=== PATIENT | female | born 1960 | race Caucasian/White ===

== ENCOUNTER 2016-08-10 21:25 | Emergency (ER) | payer OTHER ==
--- NOTE | 2016-08-10 23:27 | DIAGNOSTIC IMAGING REPORT ---
PROCEDURE: CT ABD/PELVIS WITH CONTRAST CLINICAL INDICATION: ABDOMINAL PAIN TECHNIQUE: 125 ml of Isovue 300 were injected intravenously and axial images were obtained of the entire abdomen and pelvis with sagittal and coronal reformations. COMPARISON: None. FINDINGS: ABDOMEN: Mild bibasilar atelectasis. Heart size is normal. Liver, gallbladder, pancreas, spleen, adrenal glands and kidneys are normal. Normal abdominal aorta. Mild hiatal hernia. Large amount of stool. PELVIS: Normal appendix. Occasional diverticula of the proximal sigmoid colon with minor adjacent inflammatory changes. 2.3 cm fibroid. Normal adnexa and bladder. No inflammatory changes or free fluid. Old left inferior pubic ramus fracture. Chronic moderate L1 compression fracture. Grade 1 L4-5 anterolisthesis. IMPRESSION: 1. Proximal sigmoid colon occasional diverticula and minor inflammatory changes consistent with partially treated diverticulitis 2. Obstipation 3. Mild hiatal hernia 4. Results discussed with Dr. Arora All CT scans at this facility use dose modulation, iterative reconstruction, and/or weight-based dosing when appropriate to reduce radiation dose to as low as reasonably achievable.
--- NOTE | 2016-08-11 00:36 | ED ORDER SUMMARY ---
..... Patient: JOSEP JAVED R OrderSheet [facility] VisitID: [id number] [place] [address] 55y, F Registration Date/Time: 08/10/2016 ORDER SHEET Weight: 68.0 kg (stated) Allergies: Codeine, Darvocet, Darvon, Tape GENERAL ORDERS: CBC w Diff Urgent (22:00 08/10/2016 Hua Austin) (Ack 22:02 Aneesh ER Bench Machine Operator) (22:10 JSanders R.N.) CMP Urgent (22:00 08/10/2016 Hua Austin) (Ack 22:02 Aneesh ER Bench Machine Operator) (22:11 DAYTONanders R.N.) UA-Culture if indicated Urgent (22:00 08/10/2016 Hua Austin) (22:01 Dimitrios R.N.) Lipase Urgent (22:00 08/10/2016 Hua Austin) (Ack 22:02 Aneesh ER Bench Machine Operator) (22:11 DAYTONanders R.N.) Amylase Urgent (22:00 08/10/2016 Hua Austin) (Ack 22:02 Aneesh ER Bench Machine Operator) (22:13 DAYTONanders R.N.) CT Abd/Pel w Cont (No) (14/0.9) Urgent (22:51 08/10/2016 Hua Austin) (Ack 22:59 Aneesh ER Bench Machine Operator) (23:08 RFay) MEDICATION ORDERS: IV FLUIDS: IV NS : initial bolus none -, then 1000 mL/hr for X1 (NOW) (21:59 08/10/2016 Hua Austin) (Ack 22:18 DAYTONanders R.N.) Toradol IV 30 mg (NOW) (22:00 08/10/2016 Hua Austin) (22:18 DAYTONanders R.N.) Zofran IV 4 mg (NOW) (22:00 08/10/2016 Hua Austin) (22:18 DAYTONanders R.N.) Demerol IV 25 mg (HIGH ALERT MEDICATION, NOW) (00:35 08/11/[address] (Ack 0:40 JSanders R.N.) (0:47 JSanders R.N.) ORDER SHEET NOTES: [Electronically signed by Adrián Arora Dr. (00:59 08/11/2016)] [Electronically signed by Yen Navarro R.N. (01:35 08/11/2016)] [Electronically locked/signed by Yen Navarro R.N. (01:35 08/11/2016)]
--- NOTE | 2016-08-11 00:36 | ED CLINICAL REPORT ---
Clinical Report - Physicians/Mid Levels [facility] [address] [place] [address] 08/10/2016 21:29 Patient: JOSEP JAVED Time Seen: 21:39; initial patient contact. Arrived- By private vehicle. Historian- patient. HISTORY OF PRESENT ILLNESS Chief Complaint: ABDOMINAL PAIN. At its maximum, severity described as moderate. When seen in the E.D., severity described as moderate. Modifying factors- worsened by food. Not relieved by anything. No radiation. It is described as located in the left lower quadrant. This started about 2 weeks ago and is still present. It was gradual in onset and has been constant. The patient has had nausea, loss of appetite and vomiting. No diarrhea. Similar symptoms previously: None. Recent medical care: The patient was seen recently in the office (Just completed a course of Cipro and Flagyl from PCP.). REVIEW OF SYSTEMS No constipation, pain with urination, urinary frequency, fever or chills. All systems otherwise negative, except as recorded above. PAST HISTORY Pelvic Fracture. Osteoporosis. Muscle Strain, Lower Extremity. Back Pain. SURGERIES: Elbow. Radial tunnel syndrome. Tonsillectomy & Adenoidectomy. SOCIAL HISTORY Current every day smoker. No alcohol use or drug use. ADDITIONAL NOTES The nursing notes have been reviewed. PHYSICAL EXAM Vital Signs: 08/10/2016 21:50 BP: 135/82. HR: 88. RR: 18. O2 saturation: 98%. Temp: 98.1 F. Pain level now: 310. Have been reviewed as normal. Appearance: Alert. Oriented X3. No acute distress. Eyes: Eyes normal inspection. ENT: Dry mucous membranes present. CVS: Normal heart rate and rhythm. Heart sounds normal. Respiratory: No respiratory distress. Breath sounds normal. Abdomen: Soft. Moderate tenderness in the left lower quadrant with guarding present. No rebound tenderness. Bowel sounds normal. No organomegaly. No mass. Femoral pulses equal. Back: Normal inspection. No CVA tenderness. Skin: Skin warm and dry. Normal skin color. Neuro: Oriented X 3. LABS, X-RAYS, AND EKG Abdominal CT: 1. Proximal sigmoid colon occasional diverticula and minor inflammatory changes consistent with partially treated diverticulitis 2. Obstipation 3. Mild hiatal hernia 4. Results discussed with Dr. Arora. Study type: abdomen and pelvis. Abdominal CT performed with IV contrast. Prior studies were not available for comparison. The study was interpreted by the radiologist and discussed with the radiologist. Laboratory Tests: UA-Culture if indicated: (KARSON: 08/10/2016 21:47) ( [facility] 08/10/2016 22:34) Final results Test Result Flag Units (Reference) URINE COLOR YELLOW URINE APPEARANCE CLEAR URINE GLUCOSE NEGATIVE (NEGATIVE) URINE BILIRUBIN NEGATIVE (NEGATIVE) URINE KETONE NEGATIVE (NEGATIVE) URINE SPECIFIC GRAVITY 1.020 (1.010-1.030) URINE PH 6.0 (5.0-8.0) URINE PROTEIN NEGATIVE (NEGATIVE) URINE UROBILINOGEN 0.2 EU/dL (0.2-1.0) URINE NITRITE NEGATIVE (NEGATIVE) URINE BLOOD NEGATIVE (NEGATIVE) URINE LEUK ESTERASE NEGATIVE (NEGATIVE) URINE RBC 0-1 rbc/hpf (0-1) URINE WBC 0-1 wbc/hpf (0-1) URINE EPITHELIAL CELLS 1-3 EPI/hpf (0-5) URINE BACTERIA NONE SEEN (NONE SEEN) URINE COMMENT CULT NOT INDICATED URINE CULTURES ARE SET-UP BASED ON THE FOLLOWING CRITERIA:POSITIVE NITRITEPOSITIVE LEUKOCYTE ESTERASEGREATER THAN 10 WHITE BLOOD CELLSMODERATE (2+) OR GREATER BACTERIA CBC w Diff: (KARSON: 08/10/2016 22:05) ( [facility] 08/10/2016 22:19) Final results Test Result Flag Units (Reference) WHITE BLOOD COUNT 7.6 K/uL (4.5-11.5) RED BLOOD COUNT 4.17 M/uL (4.00-5.20) HEMOGLOBIN 12.9 gm/dL (12.0-16.0) HEMATOCRIT 38.9 % (36.0-46.0) MEAN CELL VOLUME 93 fL (80-100) MEAN CORPUSCULAR HGB 31 pg (26-34) MEAN CORPUSCULAR HGB CONC 33 g/dL (31-37) RED CELL DISTRIBUTION WIDTH 13.2 % (11.6-14.8) PLATELET COUNT 221 K/uL (150-400) NEUTROPHIL % 56.5 % (50-75) LYMPH % 33.9 % (25-40) MONO % 5.1 % (3-14) EOSINOPHIL % 4.3 H % (0-4) BASOPHIL % 0.2 % (0-2) CMP: (KARSON: 08/10/2016 22:05) ( MsgRcvd 08/10/2016 22:35) Final results Test Result Flag Units (Reference) GLUCOSE 88 mg/dL (70-110) BUN 14 mg/dL (7-18) CREATININE 0.9 mg/dL (0.6-1.3) Estimated GFR >60 mL/min Estimated GFR- >60 mL/min Note: Persistent reduction over 3 months in eGFR<60 mL/min/1.73 m2 defines CKD. Patients with eGFR values>=60 mL/min/1.73 m2 may also have CKD if evidence ofpersistent proteinuria. Additional information may be foundat www.kidney.org. SODIUM 144 mmol/L (136-145) POTASSIUM 3.8 mmol/L (3.5-5.1) CHLORIDE 108 H mmol/L (98-107) CARBON DIOXIDE 28 mmol/L (21-32) CALCIUM 8.5 mg/dL (8.5-10.1) TOTAL PROTEIN 6.6 g/dL (6.4-8.2) ALBUMIN 3.5 g/dL (3.3-5.0) BILIRUBIN, TOTAL 0.3 mg/dL (0.0-1.0) ALKALINE PHOSPHATASE 76 U/L (46-116) AST (SGOT) 18 U/L (15-37) ALT (SGPT) 23 U/L (12-78) LIPASE 79 U/L (73-393) AMYLASE 26 U/L (25-115) . PROGRESS AND PROCEDURES Disposition: Discharged home in good and improved condition. Condition: good. CLINICAL IMPRESSION Acute diverticulitis of the colon. No perforation, bleeding, abscess, peritonitis or obstruction. INSTRUCTIONS Drink plenty of fluids. Your Current Medications: CONTINUE TAKING THE FOLLOWING MEDICATIONS: Diclofenac Epolamine Transdermal. Lidoderm External : prn. Omeprazole Oral : Capsule Delayed Release 40 mg, 1 capsule daily. Promethazine HCl Oral : Tablet 25 mg, 1 tablet 4x a day, prn. Sucralfate Oral : Tablet 1 gm, 1 tablet 4x a day, prn. TraZODone HCl Oral : Tablet 100 mg, 1 tablet - 2 at bedtime. Prescription Medications: Zofran (orally disintegrating tablets) 4 mg: take 1 orally every 6 hours as needed for nausea and vomiting. Dispense ten (10). No refill. Substitution is permissible. Flagyl 500 mg: Take 1 tablet orally every 12 hours for 10 days. No refill. Substitution is permissible Trimethoprim-Sulfamethoxazole DS: take 1 tablet orally every 12 hours for 10 days. No refill. Tramadol 50 mg: take 1 orally every 6 hours as needed for pain. Do not take more than 8 tablets in a 24 hour period. Dispense twenty (20). No refills. Follow-up: Follow up with your doctor in about two days. Call for an appointment. Screening today revealed the patient's blood pressure to be in the hypertensive range. The patient should follow up with a primary care provider for blood pressure management. (Electronically signed by Adrián Arora Dr. 08/11/2016 0:59)
--- NOTE | 2016-08-11 00:36 | ED NURSING NOTES ---
Clinical Report - Nurses [facility] [address] [place] [address] 08/10/2016 21:29 [id number] Triage time 21:36 Aug 10 2016. Acuity: LEVEL 3. Chief Complaint: ABDOMINAL PAIN, NAUSEA and VOMITING. 21:48 08/10/16. SEPSIS SCREEN: Sepsis Screen. Negative (no infection suspected/documented). GEM COMA SCORE: [place] Coma Scale: 15- eyes open spontaneously (4); best verbal response- oriented x 4 (5); best motor response- obeys commands (6). --21:48 Yen Navarro R.N. 21:50 08/10/16. BP: 135/82 (regular adult cuff) taken on the left arm. HR: 88 (regular). RR: 18. O2 saturation: 98% on room air. Temp: 98.1 F (oral). Pain level now: 310. --21:52 Yen Navarro R.N. Weight: 68 kg stated. Height/Length: 61 inches Per Patient. BMI: 28.3. --21:47 Yen Navarro R.N. Medications TraZODone HCl Oral (Tablet 100 mg) 1 tablet - 2, at bedtime. --21:43 Yen Navarro R.N. Promethazine HCl Oral (Tablet 25 mg) 1 tablet, 4x a day as needed. --21:43 Yen Navarro R.N. Sucralfate Oral (Tablet 1 gm) 1 tablet, 4x a day as needed. --21:44 Yen Navarro R.N. Omeprazole Oral (Capsule Delayed Release 40 mg) 1 capsule, daily. --21:44 Yen Navarro R.N. Lidoderm External, as needed. --21:44 Yen Navarro R.N. Diclofenac Epolamine Transdermal. --21:45 Yen Navarro R.N. Allergies Codeine. Darvocet. Darvon. --21:39 eYn Navarro R.N. Tape. --21:45 Yen Navarro R.N. History Arrived by private vehicle. Historian: patient. Accompanied by family. Primary physician ([facility]). Onset. (14 Days, says PCP and got ABO for possible diverticulitis, this has not helped). She has had nausea and abdominal pain. The pain is described as located in the RLQ, LLQ and lower abdomen. She has had vomiting (4 days ago). Last oral intake by patient was lunch. Treatment UPSETTER SETTER UP: (ABO, Sucralfate, cipro finished course, metronidazone finished course). PAST MEDICAL HX: Gastroesophageal reflux disease. The patient is post-menopausal. SOCIAL HX: Current every day light tobacco smoker (cigarette)- less than 1/2 a pack per day. No alcohol use or drug use. No recent travel. No infectious disease exposure. No known contact with a sick individual. ABUSE ASSESSMENT: No report of abuse. --21:48 Yen Navarro R.N. PROBLEMS: Pelvic Fracture. Osteoporosis. Muscle Strain, Lower Extremity. Back Pain. --21:40 Yen Navarro R.N. ADDITIONAL SURGERIES: Elbow. Radial tunnel syndrome. Tonsillectomy & Adenoidectomy. --21:40 Yen Navarro R.N. Interventions ID band on patient. To treatment room. --21:48 Yen Navarro R.N. PHYSICAL ASSESSMENT 21:49 08/10/16. Ambulatory to room. Patient gowned. GENERAL / NEURO / PSYCH: Alert. Oriented X 4. HEENT: Mucous membranes are pink. RESPIRATORY: Respirations not labored. Breath sounds within normal limits. CVS: Normal sinus rhythm noted. Capillary refill less than 2 seconds. GI / : The patient has had nausea. Abdominal distention. Abdomen soft and nontender. Rebound tenderness in the lower abdomen. Guarding present. Bowel sounds within normal limits. Stool color normal. SKIN: Skin is warm. --21:49 Yen Navarro R.N. NURSING PROGRESS NOTES 21:50 08/10/16. The plan of care for this patient has been created. Patient gowned. Head of bed elevated. Reassurance given. Two patient identifiers checked. Call light placed in reach. Side rails up x 1. Bed placed in lowest position. Brakes of bed on. Patient ready for evaluation- chart flagged and ED physician notified. --21:50 Yen Navarro R.N. 22:08/10/2016 Site #1 started via IV in the left antecubital space with an 20g angiocath, with aseptic technique and good blood return; one attempt. Blood drawn: rainbow set. Labeled in the presence of the patient and sent to the lab. Saline lock flushed with 10 mL saline. --22:13 Yen Navarro R.N. 22:08/10/2016 Started bag #1 1000 mL IV Fluids IV NS (Saline); bolus of 1000 mL over 1 hour(s) via site #1 via dial-a-flow. Allergies verified and confirmed 5 rights. IV patency established. IV site checked: no pain, redness, or swelling. IV flushed thoroughly pre- and post-medication administration. --22: Yen Navarro R.N. 22:17 08/10/16. ( at bedside). --22:17 Yen Navarro R.N. 22:16 08/10/16. BP: 122/95 (regular adult cuff) taken on the right arm. HR: 86. RR: 18. O2 saturation: 95% on room air. Pain level now: 4/10. --22:17 Yen Navarro R.N. 22:08/10/2016 Toradol IVP 30 mg given over 1 minute(s) via site #1. Allergies verified and confirmed 5 rights. IV patency established. IV site checked: no pain, redness, or swelling. IV flushed thoroughly pre- and post-medication administration. IVP given by RN. --22:18 Yen Navarro R.N. 22:08/10/2016 Zofran (Ondansetron HCl) IVP 4 mg given over 1 minute(s) via site #1. Allergies verified and confirmed 5 rights. IV patency established. IV site checked: no pain, redness, or swelling. IV flushed thoroughly pre- and post-medication administration. IVP given by RN. --22:18 Yen Navarro R.N. Patient transported to radiology by stretcher with tech. (23:Aug 10 2016). --23:06 Yen Navarro R.N. 23:07 08/10/16. BP: 110/78. HR: 88. RR: 18. O2 saturation: 99% on room air. Pain level now: 07/08. --23:08 Yen Navarro R.N. Patient returned from radiology by stretcher with tech. (:Aug 10 2016). --23:25 Yen Navarro R.N. 23:27 08/10/16. BP: 113/95 (regular adult cuff) taken on the left arm. HR: 86. RR: 18. O2 saturation: 98% on room air. Pain level now: 07/08. Additional comments: ABD pain. --23:28 Yen Navarro R.N. 23:15 08/10/2016 Zofran IVP Response: no adverse reaction pain is gone now. Symptoms have improved the patient feels better. --23:58 Yen Navarro R.N. 23:15 08/10/2016 Toradol IVP Response: no adverse reaction pain is improving. Symptoms have improved the patient feels better. --23:59 Yen Navarro R.N. 23:08/10/2016 IV Fluids IV NS Discontinued: bag #1 completed. Total amount infused: 1000 mL. IV patency established. IV site checked: no pain, redness, or swelling. IV flushed thoroughly. --23:25 Yen Navarro R.N. 23:28 08/10/16. --23:28 Yen Navarro R.N. 00:12 08/11/16. ( Patient say her pain had gotten better and now it is worse again. Informed physician). --00:12 Yen Navarro R.N. 00:11 08/11/16. BP: 108/71 (regular adult cuff) taken on the left arm. HR: 81. RR: 18. O2 saturation: 97% on room air. Pain level now: 09/07. --00:12 Yen Navarro R.N. 00:46 08/11/16. BP: 112/80 (regular adult cuff) taken on the right arm. HR: 81. RR: 18. O2 saturation: 98% on room air. Pain level now: 07/08. --00:47 Yen Navarro R.N. 00:47 08/11/2016 Demerol (Meperidine HCl) IVP 25 mg given over 1 minute(s) via site #1. Allergies verified and confirmed 5 rights. IV patency established. IV site checked: no pain, redness, or swelling. IV flushed thoroughly pre- and post-medication administration. IVP given by RN. --00:47 Yen Navarro R.N. 00:47 08/11/16. --00:47 Yen Navarro R.N. 01:34 08/11/2016 Demerol IVP Response: no adverse reaction pain is improving. Symptoms have improved the patient feels better. --01:34 Yen Navarro R.N. DISPOSITION / DISCHARGE 00:47 08/11/16. BP: 112/80. HR: 80. RR: 17. O2 saturation: 100% on room air. --00:48 Alex Breaux R.N. 01:15 08/11/2016 Site #1 removed upon discharge. Bandaid applied. --01:15 Yen Navarro R.N. 01:18 08/11/16. Condition at departure: improved. No learning barriers present. Discharge instructions provided and reviewed with the patient. Reviewed medication(s) side effects, precautions, dosing and course information. Prescription(s) given to the patient. Patient verbalized understanding. Written instructions provided in Turkmen. The patient was discharged by the physician. She was discharged home and accompanied by parent. She left the Emergency Department ambulatory and via private vehicle. Parent driving. --01:18 Yen Navarro R.N. 01:12 08/11/16. BP: 103/67 (regular adult cuff) taken on the right arm. HR: 80. RR: 18. O2 saturation: 100% on room air. Temp: 97.9 F (oral). Pain level now: 07/08. --01:18 Yen Navarro R.NJose 01:28 08/11/16. ( Patient left in good condition, patients is driving, patient advised not to drive for 4 hours because of the Demerol). --01:28 Yen Navarro R.N. Departure time: 01:32 Aug 11 2016. --01:33 Yen Navarro R.N. Locked/Released at 08/11/2016 1:35 by Yen Navarro R.N.
--- NOTE | 2016-08-11 00:36 | ED NURSING NOTES ---
Clinical Report - Nurses [facility] [address] [place] [address] 08/10/2016 21:29 [facility]: [id number] TRI[facility] Triage time 21:36 Aug 10 2016. Acuity: LEVEL 3. Chief Complaint: ABDOMINAL PAIN, NAUSEA and VOMITING. 21:48 08/10/16. SEPSIS SCREEN: Sepsis Screen. Negative (no infection suspected/documented). GEM COMA SCORE: Lima Coma Scale: 15- eyes open spontaneously (4); best verbal response- oriented x 4 (5); best motor response- obeys commands (6). --21:48 Yen Navarro R.N. 21:50 08/10/16. BP: 135/82 (regular adult cuff) taken on the left arm. HR: 88 (regular). RR: 18. O2 saturation: 98% on room air. Temp: 98.1 F (oral). Pain level now: 310. --21:52 Yen Navarro R.N. Weight: 68 kg stated. Height/Length: 61 inches Per Patient. BMI: 28.3. --21:47 Yen Navarro R.N. Medications TraZODone HCl Oral (Tablet 100 mg) 1 tablet - 2, at bedtime. --21:43 Yen Navarro R.N. Promethazine HCl Oral (Tablet 25 mg) 1 tablet, 4x a day as needed. --21:43 Yen Navarro R.N. Sucralfate Oral (Tablet 1 gm) 1 tablet, 4x a day as needed. --21:44 Yen Navarro R.N. Omeprazole Oral (Capsule Delayed Release 40 mg) 1 capsule, daily. --21:44 Yen Navarro R.N. Lidoderm External, as needed. --21:44 Yen Navarro R.N. Diclofenac Epolamine Transdermal. --21:45 Yen Navarro R.N. Allergies Codeine. Darvocet. Darvon. --21:39 Yen Navarro R.N. Tape. --21:45 Yen Navarro R.N. History Arrived by private vehicle. Historian: patient. Accompanied by family. Primary physician ([facility] Onset. (14 Days, says PCP and got ABO for possible diverticulitis, this has not helped). She has had nausea and abdominal pain. The pain is described as located in the RLQ, LLQ and lower abdomen. She has had vomiting (4 days ago). Last oral intake by patient was lunch. Treatment STEWARD/STEWARDESS THIRD: (ABO, Sucralfate, cipro finished course, metronidazone finished course). PAST MEDICAL HX: Gastroesophageal reflux disease. The patient is post-menopausal. SOCIAL HX: Current every day light tobacco smoker (cigarette)- less than 1/2 a pack per day. No alcohol use or drug use. No recent travel. No infectious disease exposure. No known contact with a sick individual. ABUSE ASSESSMENT: No report of abuse. --21:48 Yen Navarro R.N. PROBLEMS: Pelvic Fracture. Osteoporosis. Muscle Strain, Lower Extremity. Back Pain. --21:40 Yen Navarro R.N. ADDITIONAL SURGERIES: Elbow. Radial tunnel syndrome. Tonsillectomy & Adenoidectomy. --21:40 Yen Navarro R.N. Interventions ID band on patient. To treatment room. --21:48 Yen Navarro R.N. PHYSICAL ASSESSMENT 21:49 08/10/16. Ambulatory to room. Patient gowned. GENERAL / NEURO / PSYCH: Alert. Oriented X 4. HEENT: Mucous membranes are pink. RESPIRATORY: Respirations not labored. Breath sounds within normal limits. CVS: Normal sinus rhythm noted. Capillary refill less than 2 seconds. GI / : The patient has had nausea. Abdominal distention. Abdomen soft and nontender. Rebound tenderness in the lower abdomen. Guarding present. Bowel sounds within normal limits. Stool color normal. SKIN: Skin is warm. --21:49 Yen Navarro R.N. NURSING PROGRESS NOTES 21:50 08/10/16. The plan of care for this patient has been created. Patient gowned. Head of bed elevated. Reassurance given. Two patient identifiers checked. Call light placed in reach. Side rails up x 1. Bed placed in lowest position. Brakes of bed on. Patient ready for evaluation- chart flagged and ED physician notified. --21:50 Yen Navarro R.N. 22:08/10/2016 Site #1 started via IV in the left antecubital space with an 20g angiocath, with aseptic technique and good blood return; one attempt. Blood drawn: rainbow set. Labeled in the presence of the patient and sent to the lab. Saline lock flushed with 10 mL saline. --22:13 Yen Navarro R.N. 22:08/10/2016 Started bag #1 1000 mL IV Fluids IV NS (Saline); bolus of 1000 mL over 1 hour(s) via site #1 via dial-a-flow. Allergies verified and confirmed 5 rights. IV patency established. IV site checked: no pain, redness, or swelling. IV flushed thoroughly pre- and post-medication administration. --22: Yen Navarro R.N. 22:17 08/10/16. ( at bedside). --22:17 Yen Navarro R.N. 22:16 08/10/16. BP: 122/95 (regular adult cuff) taken on the right arm. HR: 86. RR: 18. O2 saturation: 95% on room air. Pain level now: 4/10. --22:17 Yen Navarro R.N. 22:08/10/2016 Toradol IVP 30 mg given over 1 minute(s) via site #1. Allergies verified and confirmed 5 rights. IV patency established. IV site checked: no pain, redness, or swelling. IV flushed thoroughly pre- and post-medication administration. IVP given by RN. --22:18 Yen Navarro R.N. 22:08/10/2016 Zofran (Ondansetron HCl) IVP 4 mg given over 1 minute(s) via site #1. Allergies verified and confirmed 5 rights. IV patency established. IV site checked: no pain, redness, or swelling. IV flushed thoroughly pre- and post-medication administration. IVP given by RN. --22:18 Yen Navarro R.N. Patient transported to radiology by stretcher with tech. (23:Aug 10 2016). --23:06 Yen Navarro R.N. 23:07 08/10/16. BP: 110/78. HR: 88. RR: 18. O2 saturation: 99% on room air. Pain level now: 07/08. --23:08 Yen Navarro R.N. Patient returned from radiology by stretcher with tech. (:Aug 10 2016). --23:25 Yen Navarro R.N. 23:27 08/10/16. BP: 113/95 (regular adult cuff) taken on the left arm. HR: 86. RR: 18. O2 saturation: 98% on room air. Pain level now: 07/08. Additional comments: ABD pain. --23:28 Yen Navarro R.N. 23:15 08/10/2016 Zofran IVP Response: no adverse reaction pain is gone now. Symptoms have improved the patient feels better. --23:58 Yen Navarro R.N. 23:15 08/10/2016 Toradol IVP Response: no adverse reaction pain is improving. Symptoms have improved the patient feels better. --23:59 Yen Navarro R.N. 23:08/10/2016 IV Fluids IV NS Discontinued: bag #1 completed. Total amount infused: 1000 mL. IV patency established. IV site checked: no pain, redness, or swelling. IV flushed thoroughly. --23:25 Yen Navarro R.N. 23:28 08/10/16. --23:28 Yen Navarro R.N. 00:12 08/11/16. ( Patient say her pain had gotten better and now it is worse again. Informed physician). --00:12 Yen Navarro R.N. 00:11 08/11/16. BP: 108/71 (regular adult cuff) taken on the left arm. HR: 81. RR: 18. O2 saturation: 97% on room air. Pain level now: 09/07. --00:12 Yen Navarro R.N. 00:46 08/11/16. BP: 112/80 (regular adult cuff) taken on the right arm. HR: 81. RR: 18. O2 saturation: 98% on room air. Pain level now: 07/08. --00:47 Yen Navarro R.N. 00:47 08/11/2016 Demerol (Meperidine HCl) IVP 25 mg given over 1 minute(s) via site #1. Allergies verified and confirmed 5 rights. IV patency established. IV site checked: no pain, redness, or swelling. IV flushed thoroughly pre- and post-medication administration. IVP given by RN. --00:47 Yen Navarro R.N. 00:47 08/11/16. --00:47 Yen Navarro R.N. 01:34 08/11/2016 Demerol IVP Response: no adverse reaction pain is improving. Symptoms have improved the patient feels better. --01:34 Yen Navarro R.N. DISPOSITION / DISCHARGE 00:47 08/11/16. BP: 112/80. HR: 80. RR: 17. O2 saturation: 100% on room air. --00:48 Alex Breaux R.N. 01:15 08/11/2016 Site #1 removed upon discharge. Bandaid applied. --01:15 Yen Navarro R.N. 01:18 08/11/16. Condition at departure: improved. No learning barriers present. Discharge instructions provided and reviewed with the patient. Reviewed medication(s) side effects, precautions, dosing and course information. Prescription(s) given to the patient. Patient verbalized understanding. Written instructions provided in Armenian. The patient was discharged by the physician. She was discharged home and accompanied by parent. She left the Emergency Department ambulatory and via private vehicle. Parent driving. --01:18 Yen Navarro R.N. 01:12 08/11/16. BP: 103/67 (regular adult cuff) taken on the right arm. HR: 80. RR: 18. O2 saturation: 100% on room air. Temp: 97.9 F (oral). Pain level now: 07/08. --01:18 Yen Navarro R.NJose 01:28 08/11/16. ( Patient left in good condition, patients is driving, patient advised not to drive for 4 hours because of the Demerol). --01:28 Yen Navarro R.N. Departure time: 01:32 Aug 11 2016. --01:33 Yen Navarro R.N. Locked/Released at 08/11/2016 1:35 by Yen Navarro R.N.
--- NOTE | 2016-08-11 00:36 | ED ORDER SUMMARY ---
..... Patient: JOSEP JAVED R OrderSheet [facility] VisitID: [id number] [place] [address] 55y, F Registration Date/Time: 08/10/2016 ORDER SHEET Weight: 68.0 kg (stated) Allergies: Codeine, Darvocet, Darvon, Tape GENERAL ORDERS: CBC w Diff Urgent (22:00 08/10/2016 Hua Austin) (Ack 22:02 Aneesh ER Distribution Estimator) (22:10 JSanders R.N.) CMP Urgent (22:00 08/10/2016 Hua Austin) (Ack 22:02 Aneesh ER Distribution Estimator) (22:11 DAYTONanders R.N.) UA-Culture if indicated Urgent (22:00 08/10/2016 Hua Austin) (22:01 Dimitrios R.N.) Lipase Urgent (22:00 08/10/2016 Hua Austin) (Ack 22:02 Aneesh ER Distribution Estimator) (22:11 DAYTONanders R.N.) Amylase Urgent (22:00 08/10/2016 Hua Austin) (Ack 22:02 Aneesh ER Distribution Estimator) (22:13 DAYTONanders R.N.) CT Abd/Pel w Cont (No) (14/0.9) Urgent (22:51 08/10/2016 Hua Austin) (Ack 22:59 Aneesh ER Distribution Estimator) (23:08 RFay) MEDICATION ORDERS: IV FLUIDS: IV NS : initial bolus none -, then 1000 mL/hr for X1 (NOW) (21:59 08/10/2016 Hua Austin) (Ack 22:18 DAYTONanders R.N.) Toradol IV 30 mg (NOW) (22:00 08/10/2016 Hua Austin) (22:18 DAYTONanders R.N.) Zofran IV 4 mg (NOW) (22:00 08/10/2016 Hua Austin) (22:18 DAYTONanders R.N.) Demerol IV 25 mg (HIGH ALERT MEDICATION, NOW) (00:35 08/11/[address] (Ack 0:40 JSanders R.N.) (0:47 JSanders R.N.) ORDER SHEET NOTES: [Electronically signed by Adrián Arora Dr. (00:59 08/11/2016)] [Electronically signed by Yen Navarro R.N. (01:35 08/11/2016)] [Electronically locked/signed by Yen Navarro R.N. (01:35 08/11/2016)]
--- NOTE | 2016-08-11 01:35 | ED MAR SUMMARY ---
..... Medication Administration Record [facility] [address] [place] [address] Patient: JOSEP JAVED Visit ID: [id number] 55y, F Weight: 68.0 kg Height/Length: 61 in BMI: 28.3 ALLERGIES: Codeine, Darvocet, Darvon, Tape Start 22:13 08/10/2016 Yen Navarro R.N., Stop 23:25 08/10/2016 Yen Navarro R.N. Medication Administered: IV NS (SALINE), Dose: IV Fluids, Bolus: 1000 mL over 1 hour(s), Dispensed: 1000 mL bag, Site: #1 left AC. Medication Ordered: IV NS : initial bolus none -, then 1000 mL/hr for X1 (NOW). Given 22:18 08/10/2016 Yen Navarro R.N. Medication Administered: TORADOL [IVP], Dose: 30 mg IVP over 1 minute(s), Site: #1 left AC. Medication Ordered: Toradol IV 30 mg (NOW). Given 22:18 08/10/2016 Yen Navarro R.N. Medication Administered: ZOFRAN [IVP] (ONDANSETRON HCL), Dose: 4 mg IVP over 1 minute(s), Site: #1 left AC. Medication Ordered: Zofran IV 4 mg (NOW). Given 00:47 08/11/2016 Yen Navarro R.N. Medication Administered: DEMEROL [IVP] (MEPERIDINE HCL), Dose: 25 mg IVP over 1 minute(s), Site: #1 left AC. Medication Ordered: Demerol IV 25 mg (HIGH ALERT MEDICATION, NOW).
--- NOTE | 2016-08-11 01:35 | ED MED RECONCILIATION SUMMARY ---
Patient: AME JAVEDNN Rhett Medication Reconciliation Report [facility] VisitID: [id number] [address] [place] [address] 55y, F Registration Date/Time: 08/10/2016 Weight: 68.0 kg Height/Length: 61 in. BMI: 28.3 ALLERGIES: Codeine, Darvocet, Darvon, Tape The patient's Home Medications are listed below: CONTINUE TAKING THE FOLLOWING MEDICATIONS: Diclofenac Epolamine Transdermal Lidoderm External Omeprazole Oral (40 mg) 1 capsule, daily Promethazine HCl Oral (25 mg) 1 tablet, 4x a day Sucralfate Oral (1 gm) 1 tablet, 4x a day TraZODone HCl Oral (100 mg) 1 tablet - 2, at bedtime The source(s) of the original Home Medication information: Not obtained. The following Medications were given to the patient in the Emergency Department: IV NS IV Fluids bolus 1000 mL over 1 hour(s), administered: 08/10/2016 10:13:00 PM Toradol [IVP] IVP 30 mg, administered: 08/10/2016 10:18:00 PM Zofran [IVP] IVP 4 mg, administered: 08/10/2016 10:18:00 PM Demerol [IVP] IVP 25 mg, administered: 08/11/2016 12:47:00 AM The following Medications were prescribed to the patient: Zofran (orally disintegrating tablets) 4 mg: take 1 orally every 6 hours as needed for nausea and vomiting. Dispense ten (10). No refill. Substitution is permissible. -- Adrián Arora Dr. Flagyl 500 mg: Take 1 tablet orally every 12 hours for 10 days. No refill. Substitution is permissible -- Adrián Arora Dr. Trimethoprim-Sulfamethoxazole DS: take 1 tablet orally every 12 hours for 10 days. No refill. -- Adrián Arora Dr. Tramadol 50 mg: take 1 orally every 6 hours as needed for pain. Do not take more than 8 tablets in a 24 hour period. Dispense twenty (20). No refills. -- Adrián Arora Dr.
--- NOTE | 2016-08-11 01:35 | ED MAR SUMMARY ---
..... Medication Administration Record [facility] [address] [place] [address] Patient: JOSEP JAVED Visit ID: [id number] 55y, F Weight: 68.0 kg Height/Length: 61 in BMI: 28.3 ALLERGIES: Codeine, Darvocet, Darvon, Tape Start 22:13 08/10/2016 Yen Navarro R.N., Stop 23:25 08/10/2016 Yen Navarro R.N. Medication Administered: IV NS (SALINE), Dose: IV Fluids, Bolus: 1000 mL over 1 hour(s), Dispensed: 1000 mL bag, Site: #1 left AC. Medication Ordered: IV NS : initial bolus none -, then 1000 mL/hr for X1 (NOW). Given 22:18 08/10/2016 Yen Navarro R.N. Medication Administered: TORADOL [IVP], Dose: 30 mg IVP over 1 minute(s), Site: #1 left AC. Medication Ordered: Toradol IV 30 mg (NOW). Given 22:18 08/10/2016 Yen Navarro R.N. Medication Administered: ZOFRAN [IVP] (ONDANSETRON HCL), Dose: 4 mg IVP over 1 minute(s), Site: #1 left AC. Medication Ordered: Zofran IV 4 mg (NOW). Given 00:47 08/11/2016 Yen Navarro R.N. Medication Administered: DEMEROL [IVP] (MEPERIDINE HCL), Dose: 25 mg IVP over 1 minute(s), Site: #1 left AC. Medication Ordered: Demerol IV 25 mg (HIGH ALERT MEDICATION, NOW).
--- NOTE | 2016-08-11 01:35 | ED MED RECONCILIATION SUMMARY ---
Patient: AME JAVEDNN Rhett Medication Reconciliation Report [facility] VisitID: [id number] [address] [place] [address] 55y, F Registration Date/Time: 08/10/2016 Weight: 68.0 kg Height/Length: 61 in. BMI: 28.3 ALLERGIES: Codeine, Darvocet, Darvon, Tape The patient's Home Medications are listed below: CONTINUE TAKING THE FOLLOWING MEDICATIONS: Diclofenac Epolamine Transdermal Lidoderm External Omeprazole Oral (40 mg) 1 capsule, daily Promethazine HCl Oral (25 mg) 1 tablet, 4x a day Sucralfate Oral (1 gm) 1 tablet, 4x a day TraZODone HCl Oral (100 mg) 1 tablet - 2, at bedtime The source(s) of the original Home Medication information: Not obtained. The following Medications were given to the patient in the Emergency Department: IV NS IV Fluids bolus 1000 mL over 1 hour(s), administered: 08/10/2016 10:13:00 PM Toradol [IVP] IVP 30 mg, administered: 08/10/2016 10:18:00 PM Zofran [IVP] IVP 4 mg, administered: 08/10/2016 10:18:00 PM Demerol [IVP] IVP 25 mg, administered: 08/11/2016 12:47:00 AM The following Medications were prescribed to the patient: Zofran (orally disintegrating tablets) 4 mg: take 1 orally every 6 hours as needed for nausea and vomiting. Dispense ten (10). No refill. Substitution is permissible. -- Adrián Arora Dr. Flagyl 500 mg: Take 1 tablet orally every 12 hours for 10 days. No refill. Substitution is permissible -- Adrián Arora Dr. Trimethoprim-Sulfamethoxazole DS: take 1 tablet orally every 12 hours for 10 days. No refill. -- Adrián Arora Dr. Tramadol 50 mg: take 1 orally every 6 hours as needed for pain. Do not take more than 8 tablets in a 24 hour period. Dispense twenty (20). No refills. -- Adrián Arora Dr.
--- NOTE | 2016-08-11 01:35 | ED DISCHARGE INSTRUCTIONS ---
Patient: JOSEP JAVED Rhett General Instructions [facility] VisitID: [id number] [place] [address] 55y, F Registration Date/Time: 08/10/2016 Acute diverticulitis of the colon. No perforation, bleeding, abscess, peritonitis or obstruction. INSTRUCTIONS Drink plenty of fluids. Your Current Medications: CONTINUE TAKING THE FOLLOWING MEDICATIONS: Diclofenac Epolamine Transdermal. Lidoderm External : prn. Omeprazole Oral : Capsule Delayed Release 40 mg, 1 capsule daily. Promethazine HCl Oral : Tablet 25 mg, 1 tablet 4x a day, prn. Sucralfate Oral : Tablet 1 gm, 1 tablet 4x a day, prn. TraZODone HCl Oral : Tablet 100 mg, 1 tablet - 2 at bedtime. Prescription Medications: Zofran (orally disintegrating tablets) 4 mg: take 1 orally every 6 hours as needed for nausea and vomiting. Dispense ten (10). No refill. Substitution is permissible. Flagyl 500 mg: Take 1 tablet orally every 12 hours for 10 days. No refill. Substitution is permissible Trimethoprim-Sulfamethoxazole DS: take 1 tablet orally every 12 hours for 10 days. No refill. Tramadol 50 mg: take 1 orally every 6 hours as needed for pain. Do not take more than 8 tablets in a 24 hour period. Dispense twenty (20). No refills. Follow-up: Follow up with your doctor in about two days. Call for an appointment. Screening today revealed the patient's blood pressure to be in the hypertensive range. The patient should follow up with a primary care provider for blood pressure management. ADDITIONAL INFORMATION Diverticulitis Some people develop pouches along the wall of the colon as they get older. The pouches,called diverticuli, usually cause no symptoms. If the pouches become blocked, an infection may occur known as diverticulitis. This causes lower abdominal pain and fever. If not treated, it can become a serious condition, causing an abscess to form inside the pouch. The abscess may block the instestinal tract even or rupture, spreading infection throughout the abdomen. When treatment is started early, oral antibiotics alone may be enough to cure diverticulitis. This method is tried first. However, if you do not improve or if your condition worsens while you are trying oral antibiotics, it will be necessary to admit you to the hospital for IV antibiotics. Severe cases may require surgery. Home care The following guidelines will help you care for your diverticulitis at home: During the acute illness, rest and follow a low-fiber diet: Foods to Include: flake cereal, mashed potatoes, pancakes, waffles, pasta, white bread, rice, applesauce, bananas, eggs, meat, fish, poultry, tofu, cooked vegetables. Take antibiotics exactly as directed. Do not miss any doses or stop taking the medication, even if you feel better. Monitor your temperature and report any rising temperature to your doctor. Preventing future attacks Once you have had an episode of diverticulitis, you are at risk of having a recurrence. After you have recovered from this episode, you may be able to reduce your risk by eating a high-fiber diet (2035 gm/day of fiber). This cleans out the colon pouches that already exist and prevent new ones from forming. Foods high in fiber includes fresh fruits and edible peelings, raw or lightly cooked vegetables, whole grain cereals and breads, dried beans and peas, bran. Follow-up care Follow up with your doctor as advised or sooner if you are not improving in the nexttwo days. When to seek medical care Get prompt medical attention if any of the following occur: Fever of 100.4F (38C) or higher, or as directed by your health care provider Repeated vomiting or swelling of the abdomen Weakness, dizziness, light-headedness Increasing abdominal pain that becomes severe or spreads to your back Pain that moves to the right lower abdomen Rectal bleeding (red, black or maroon color of the stools) Unexpected vaginal bleeding Ondansetron Oral disintegrating tablet What is this medicine? ONDANSETRON (on JHONNY se doris) is used to treat nausea and vomiting caused by chemotherapy. It is also used to prevent or treat nausea and vomiting after surgery. How should I use this medicine? These tablets are made to dissolve in the mouth. Do not try to push the tablet through the foil backing. With dry hands, peel away the foil backing and gently remove the tablet. Place the tablet in the mouth and allow it to dissolve, then swallow. While you may take these tablets with water, it is not necessary to do so. Talk to your safety fire boss regarding the use of this medicine in children. Special care may be needed. What side effects may I notice from receiving this medicine? Side effects that you should report to your doctor or health career representative as soon as possible: allergic reactions like skin rash, itching or hives, swelling of the face, lips, or tongue breathing problems dizziness fast or irregular heartbeat feeling faint or lightheaded, falls fever and chills swelling of the hands and feet tightness in the chest Side effects that usually do not require medical attention (report to your doctor or health career representative if they continue or are bothersome): constipation or diarrhea headache What may interact with this medicine? Do not take this medicine with any of the following medications: -apomorphine -cisapride -dofetilide -dronedarone -pimozide -thioridazine -ziprasidone This medicine may also interact with the following medications: -carbamazepine -phenytoin -rifampicin -tramadol -other medicines that prolong the QT interval (cause an abnormal heart rhythm) What if I miss a dose? If you miss a dose, take it as soon as you can. If it is almost time for your next dose, take only that dose. Do not take double or extra doses. Where should I keep my medicine? Keep out of the reach of children. Store between 2 and 30 degrees C (36 and 86 degrees F). Throw away any unused medicine after the expiration date. What should I tell my health care provider before I take this medicine? They need to know if you have any of these conditions: heart disease history of irregular heartbeat liver disease low levels of magnesium or potassium in the blood an unusual or allergic reaction to ondansetron, granisetron, other medicines, foods, dyes, or preservatives or trying to get breast-feeding What should I watch for while using this medicine? Check with your doctor or health career representative as soon as you can if you have any sign of an allergic reaction. Metronidazole Oral tablet What is this medicine? METRONIDAZOLE (me troe NI da zole) is an antiinfective. It is used to treat certain kinds of bacterial and protozoal infections. It will not work for colds, flu, or other viral infections. How should I use this medicine? Take this medicine by mouth with a full glass of water. Follow the directions on the prescription label. Take your medicine at regular intervals. Do not take your medicine more often than directed. Take all of your medicine as directed even if you think you are better. Do not skip doses or stop your medicine early. Talk to your safety fire boss regarding the use of this medicine in children. Special care may be needed. What side effects may I notice from receiving this medicine? Side effects that you should report to your doctor or health career representative as soon as possible: allergic reactions like skin rash or hives, swelling of the face, lips, or tongue confusion, clumsiness difficulty speaking discolored or sore mouth dizziness fever, infection numbness, tingling, pain or weakness in the hands or feet trouble passing urine or change in the amount of urine redness, blistering, peeling or loosening of the skin, including inside the mouth seizures unusually weak or tired vaginal irritation, dryness, or discharge Side effects that usually do not require medical attention (report to your doctor or health career representative if they continue or are bothersome): diarrhea headache irritability metallic taste nausea stomach pain or cramps trouble sleeping What may interact with this medicine? Do not take this medicine with any of the following medications: alcohol or any product that contains alcohol amprenavir oral solution cisapride disulfiram dofetilide dronedarone paclitaxel injection pimozide ritonavir oral solution sertraline oral solution sulfamethoxazole-trimethoprim injection thioridazine ziprasidone This medicine may also interact with the following medications: cimetidine lithium other medicines that prolong the QT interval (cause an abnormal heart rhythm) phenobarbital phenytoin warfarin What if I miss a dose? If you miss a dose, take it as soon as you can. If it is almost time for your next dose, take only that dose. Do not take double or extra doses. Where should I keep my medicine? Keep out of the reach of children. Store at room temperature below 25 degrees C (77 degrees F). Protect from light. Keep container tightly closed. Throw away any unused medicine after the expiration date. What should I tell my health care provider before I take this medicine? They need to know if you have any of these conditions: anemia or other blood disorders disease of the nervous system fungal or yeast infection if you drink alcohol containing drinks liver disease seizures an unusual or allergic reaction to metronidazole, or other medicines, foods, dyes, or preservatives or trying to get breast-feeding What should I watch for while using this medicine? Tell your doctor or health career representative if your symptoms do not improve or if they get worse. You may get drowsy or dizzy. Do not drive, use machinery, or do anything that needs mental alertness until you know how this medicine affects you. Do not stand or sit up quickly, especially if you are an older patient. This reduces the risk of dizzy or fainting spells. Avoid alcoholic drinks while you are taking this medicine and for three days afterward. Alcohol may make you feel dizzy, sick, or flushed. If you are being treated for a sexually transmitted disease, avoid sexual contact until you have finished your treatment. Your sexual partner may also need treatment. Sulfamethoxazole, Trimethoprim Oral tablet What is this medicine? SULFAMETHOXAZOLE; TRIMETHOPRIM or SMX-TMP (suhl fuh meth OK angel zohl; trye METH oh prim) is a combination of a sulfonamide antibiotic and a second antibiotic, trimethoprim. It is used to treat or prevent certain kinds of bacterial infections. It will not work for colds, flu, or other viral infections. How should I use this medicine? Take this medicine by mouth with a full glass of water. Follow the directions on the prescription label. Take your medicine at regular intervals. Do not take it more often than directed. Do not skip doses or stop your medicine early. Talk to your safety fire boss regarding the use of this medicine in children. Special care may be needed. This medicine has been used in children as young as 2 months of age. What side effects may I notice from receiving this medicine? Side effects that you should report to your doctor or health career representative as soon as possible: allergic reactions like skin rash or hives, swelling of the face, lips, or tongue breathing problems fever or chills, sore throat irregular heartbeat, chest pain joint or muscle pain pain or difficulty passing urine red pinpoint spots on skin redness, blistering, peeling or loosening of the skin, including inside the mouth unusual bleeding or bruising unusually weak or tired yellowing of the eyes or skin Side effects that usually do not require medical attention (report to your doctor or health career representative if they continue or are bothersome): diarrhea dizziness headache loss of appetite nausea, vomiting nervousness What may interact with this medicine? Do not take this medicine with any of the following medications: aminobenzoate potassium dofetilide metronidazole This medicine may also interact with the following medications: TY inhibitors like benazepril, enalapril, lisinopril, and ramipril cyclosporine digoxin diuretics indomethacin medicines for diabetes methenamine methotrexate phenytoin potassium supplements pyrimethamine sulfinpyrazone tricyclic antidepressants warfarin What if I miss a dose? If you miss a dose, take it as soon as you can. If it is almost time for your next dose, take only that dose. Do not take double or extra doses. Where should I keep my medicine? Keep out of the reach of children. Store at room temperature between 20 to 25 degrees C (68 to 77 degrees F). Protect from light. Throw away any unused medicine after the expiration date. What should I tell my health care provider before I take this medicine? They need to know if you have any of these conditions: anemia asthma being treated with anticonvulsants if you frequently drink alcohol containing drinks kidney disease liver disease low level of folic acid or [id number] dehydrogenase poor nutrition or malabsorption porphyria severe allergies thyroid disorder an unusual or allergic reaction to sulfamethoxazole, trimethoprim, sulfa drugs, other medicines, foods, dyes, or preservatives or trying to get breast-feeding What should I watch for while using this medicine? Tell your doctor or health career representative if your symptoms do not improve. Drink several glasses of water a day to reduce the risk of kidney problems. Do not treat diarrhea with over the counter products. Contact your doctor if you have diarrhea that lasts more than 2 days or if it is severe and watery. This medicine can make you more sensitive to the sun. Keep out of the sun. If you cannot avoid being in the sun, wear protective clothing and use a sunscreen. Do not use sun lamps or tanning beds/booths. Tramadol Hydrochloride Oral tablet What is this medicine? TRAMADOL (TRA ma dole) is a pain reliever. It is used to treat moderate to severe pain in adults. How should I use this medicine? Take this medicine by mouth with a full glass of water. Follow the directions on the prescription label. If the medicine upsets your stomach, take it with food or milk. Do not take more medicine than you are told to take. Talk to your safety fire boss regarding the use of this medicine in children. Special care may be needed. What side effects may I notice from receiving this medicine? Side effects that you should report to your doctor or health career representative as soon as possible: allergic reactions like skin rash, itching or hives, swelling of the face, lips, or tongue breathing difficulties, wheezing confusion itching light headedness or fainting spells redness, blistering, peeling or loosening of the skin, including inside the mouth seizures Side effects that usually do not require medical attention (report to your doctor or health career representative if they continue or are bothersome): constipation dizziness drowsiness headache nausea, vomiting What may interact with this medicine? Do not take this medicine with any of the following medications: MAOIs like Carbex, Eldepryl, Marplan, Nardil, and Parnate This medicine may also interact with the following medications: alcohol or medicines that contain alcohol antihistamines benzodiazepines bupropion carbamazepine or oxcarbazepine clozapine cyclobenzaprine digoxin furazolidone linezolid medicines for depression, anxiety, or psychotic disturbances medicines for migraine headache like almotriptan, eletriptan, frovatriptan, naratriptan, rizatriptan, sumatriptan, zolmitriptan medicines for pain like pentazocine, buprenorphine, butorphanol, meperidine, nalbuphine, and propoxyphene medicines for sleep muscle relaxants naltrexone phenobarbital phenothiazines like perphenazine, thioridazine, chlorpromazine, mesoridazine, fluphenazine, prochlorperazine, promazine, and trifluoperazine procarbazine warfarin What if I miss a dose? If you miss a dose, take it as soon as you can. If it is almost time for your next dose, take only that dose. Do not take double or extra doses. Where should I keep my medicine? Keep out of the reach of children. Store at room temperature between 15 and 30 degrees C (59 and 86 degrees F). Keep container tightly closed. Throw away any unused medicine after the expiration date. What should I tell my health care provider before I take this medicine? They need to know if you have any of these conditions: brain tumor depression drug abuse or addiction head injury if you frequently drink alcohol containing drinks kidney disease or trouble passing urine liver disease lung disease, asthma, or breathing problems seizures or epilepsy suicidal thoughts, plans, or attempt; a previous suicide attempt by you or a family member an unusual or allergic reaction to tramadol, codeine, other medicines, foods, dyes, or preservatives or trying to get breast-feeding What should I watch for while using this medicine? Tell your doctor or health career representative if your pain does not go away, if it gets worse, or if you have new or a different type of pain. You may develop tolerance to the medicine. Tolerance means that you will need a higher dose of the medicine for pain relief. Tolerance is normal and is expected if you take this medicine for a long time. Do not suddenly stop taking your medicine because you may develop a severe reaction. Your body becomes used to the medicine. This does NOT mean you are addicted. Addiction is a behavior related to getting and using a drug for a non-medical reason. If you have pain, you have a medical reason to take pain medicine. Your doctor will tell you how much medicine to take. If your doctor wants you to stop the medicine, the dose will be slowly lowered over time to avoid any side effects. You may get drowsy or dizzy. Do not drive, use machinery, or do anything that needs mental alertness until you know how this medicine affects you. Do not stand or sit up quickly, especially if you are an older patient. This reduces the risk of dizzy or fainting spells. Alcohol can increase or decrease the effects of this medicine. Avoid alcoholic drinks. You may have constipation. Try to have a bowel movement at least every 2 to 3 days. If you do not have a bowel movement for 3 days, call your doctor or health career representative. Your mouth may get dry. Chewing sugarless gum or sucking hard candy, and drinking plenty of water may help. Contact your doctor if the problem does not go away or is severe. You have been given the following additional information: Diverticulitis Ondansetron Oral disintegrating tablet Metronidazole Oral tablet Sulfamethoxazole, Trimethoprim Oral tablet Tramadol Hydrochloride Oral tablet (Electronically signed by Adrián Arora Dr. 08/11/2016 0:59)
== END 2016-08-11 01:32 | disposition home or self-care (01) ==
LOC: ED SRH 21:25
DX: K57.32 Diverticulitis of large intestine without perforation or abscess without bleeding (principal); F17.200 Nicotine dependence, unspecified, uncomplicated
CPT/HCPCS: 90004; 90100; 92235; 92530; 95059